=== PATIENT | male | born 1955 | race American Indian/Alaskan Native ===

== ENCOUNTER 2018-06-08 11:59 | Inpatient (IN) | payer MEDICAID, OTHER ==
[~2018-06-08] VITALS: Ht 180.3 cm; Wt 113.1 kg
[2018-06-08 14:24] LABS: INR 0.95 (0.9-1.15); Partial Thromboplastin Time 26.6 sec (23.78-33.04); Prothrombin Time 10.2 sec (9.27-12.13)
[2018-06-08] MEDS ORDERED: cefTRIAXone 1GM/10ml IVPUSH 10 ML IV ONE (18:00)
[2018-06-08] MEDS ORDERED: HYDROcodone-ACET 10/325MG TAB PO ONE (18:00)
[2018-06-08] MEDS ORDERED: CLINDAMYCIN 600MG IV 50 ML IV ONE (18:00)
[2018-06-08] MEDS ORDERED: TEMAZEPAM 15 MG CAP PO PRN (19:00)
[2018-06-08] MEDS ORDERED: ONDANSETRON HCL 4 MG/2 ML VIAL IV PRN (19:00)
[2018-06-08] MEDS ORDERED: DOCUSATE SOD 100 MG CAP PO PRN (19:00)
[2018-06-08] MEDS ORDERED: cloNIDine HCL 0.1 MG TAB PO PRN (19:00)
[2018-06-08] MEDS ORDERED: ACETAMINOPHEN 325 MG TAB PO PRN (19:00)
[2018-06-08 19:14] LABS: Basophils # (auto) 0 uL; Basophils % (auto) 0.3 % (0.0-2.0); Eosinophils # (auto) 0.1 uL; Eosinophils % (auto) 0.6 % (0.0-7.0); Hematocrit 45.1 % (41.0-53.0); Hemoglobin 15.5 g/dL (13.5-17.5); Lymphocytes # (auto) 2.4 uL; Lymphocytes % (auto) 24.5 % (10.0-50.0); Mean Corpuscular Hemoglobin 32.3 pg (28.0-32.0); Mean Corpuscular Hgb Conc. 34.4 g/dL (32.0-36.0); Mean Corpuscular Volume 93.9 fL (80.0-100.0); Monocytes % (auto) 9.9 % (0.0-12.0); Neutrophils # (auto) 6.3 uL; Neutrophils % (auto) 64.7 % (37.0-80.0); Platelet Count (auto) 279 10^3/uL (140-450); White Blood Cell 9.8 10^3/uL (4.4-10.8)
[2018-06-08 19:20] LABS: Albumin 3.8 g/dL (3.4-5.0); BUN/Creatinine Ratio 16.9; Bilirubin, Total 1.3 mg/dL (0.2-1.0); Calcium 8.6 mg/dL (8.5-10.1); Potassium 4.3 mmol/L (3.5-5.1); Total Protein 7.6 g/dL (6.4-8.2)
[2018-06-08 20:15] VITALS: BP 153/82
[2018-06-08 22:00] VITALS: BP 153/82
[2018-06-08] MEDS: FAMOTIDINE 20 MG TAB PO SCH (22:00)
[2018-06-09] MEDS: HYDROcodone-ACET 5/325MG TAB PO PRN ×5 (00:35→19:44)
[2018-06-09] MEDS: CLINDAMYCIN 600MG IV 50 ML IV SCH ×3 (02:00→17:33)
[2018-06-09 05:34] VITALS: BP 131/75
[2018-06-09 06:20] LABS: Basophils # (auto) 0 uL; Basophils % (auto) 0.5 % (0.0-2.0); Eosinophils # (auto) 0.1 uL; Eosinophils % (auto) 1.6 % (0.0-7.0); Hematocrit 42.2 % (41.0-53.0); Hemoglobin 14.5 g/dL (13.5-17.5); Lymphocytes # (auto) 3.3 uL; Lymphocytes % (auto) 35.1 % (10.0-50.0); Mean Corpuscular Hemoglobin 32.1 pg (28.0-32.0); Mean Corpuscular Hgb Conc. 34.3 g/dL (32.0-36.0); Mean Corpuscular Volume 93.6 fL (80.0-100.0); Monocytes # (auto) 1.1 uL; Monocytes % (auto) 11.3 % (0.0-12.0); Neutrophils # (auto) 4.8 uL; Neutrophils % (auto) 51.5 % (37.0-80.0); Platelet Count (auto) 268 10^3/uL (140-450); Red Blood Cells 4.51 10^6/uL (4.5-5.90); Red Cell Distribution Width 13.1 % (11.8-14.3); White Blood Cell 9.3 10^3/uL (4.4-10.8)
[2018-06-09 06:54] LABS: Albumin 3.4 g/dL (3.4-5.0); BUN/Creatinine Ratio 14.3; Bilirubin, Total 1.3 mg/dL (0.2-1.0); Calcium 8.4 mg/dL (8.5-10.1); Potassium 4.2 mmol/L (3.5-5.1); Total Protein 6.9 g/dL (6.4-8.2)
[2018-06-09] MEDS ORDERED: ASPI325T4 PO (07:59)
[2018-06-09] MEDS ORDERED: LISI10TA6 PO (07:59)
[2018-06-09] MEDS: cefTRIAXone 1GM/10ml IVPUSH 10 ML IV SCH (08:48)
[2018-06-09] MEDS: FAMOTIDINE 20 MG TAB PO SCH ×2 (08:48→21:25)
[2018-06-09 09:01] VITALS: BP 156/81
[2018-06-09] MEDS ORDERED: ENOXAPARIN SOD 40 MG/0.4 ML SYRINGE SC SCH (10:00)
[2018-06-09] MEDS ORDERED: LISINOPRIL 10 MG TAB PO ONE (10:45)
[2018-06-09 12:39] VITALS: BP 155/80
[2018-06-09 17:08] VITALS: BP 133/71
[2018-06-09 21:20] VITALS: BP 116/63
[2018-06-10] MEDS: CLINDAMYCIN 600MG IV 50 ML IV SCH ×3 (02:08→18:00)
[2018-06-10 05:21] VITALS: BP 151/85
[2018-06-10] MEDS: HYDROcodone-ACET 5/325MG TAB PO PRN (05:37)
[2018-06-10 05:46] LABS: Urine Bacteria NONE SEEN /hpf (None Seen); Urine Blood Negative /uL (Negative); Urine Mucus FEW (None Seen); Urine Specific Gravity 1.015 (1.001-1.035); Urine WBC 5 /hpf (0 - 3)
[2018-06-10 09:00] VITALS: BP 135/88
[2018-06-10] MEDS: FAMOTIDINE 20 MG TAB PO SCH ×3 (09:22→21:32)
[2018-06-10] MEDS: cefTRIAXone 1GM/10ml IVPUSH 10 ML IV SCH (09:22)
[2018-06-10] MEDS: LISINOPRIL 10 MG TAB PO SCH (09:24)
[2018-06-10 13:00] VITALS: BP 139/73
[2018-06-10 17:00] VITALS: BP 148/60
[2018-06-10 22:00] VITALS: BP 135/70
[2018-06-11] VITALS (7 sets, daily range): BP systolic 120–151; BP diastolic 66–76
[2018-06-11] MEDS: CLINDAMYCIN 600MG IV 50 ML IV SCH ×3 (02:17→17:51)
[2018-06-11] MEDS: cefTRIAXone 1GM/10ml IVPUSH 10 ML IV SCH (09:34)
[2018-06-11] MEDS: FAMOTIDINE 20 MG TAB PO SCH ×3 (09:35→21:25)
[2018-06-11] MEDS: LISINOPRIL 10 MG TAB PO SCH (09:35)
[2018-06-11] MEDS ORDERED: metFORMIN HYDROCHLORIDE 500 MG TAB PO ONE (12:45)
[2018-06-11] MEDS: HYDROcodone-ACET 5/325MG TAB PO PRN (17:51)
[2018-06-12] MEDS: CLINDAMYCIN 600MG IV 50 ML IV SCH ×2 (01:34→10:12)
[2018-06-12 04:53] VITALS: BP 144/76
[2018-06-12 07:57] LABS: BUN/Creatinine Ratio 17.8
[2018-06-12 09:00] VITALS: BP 136/66
[2018-06-12 09:13] LABS: Basophils # (auto) 0 uL; Basophils % (auto) 0.4 % (0.0-2.0); Eosinophils # (auto) 0.2 uL; Hematocrit 45.8 % (41.0-53.0); Hemoglobin 15.5 g/dL (13.5-17.5); Lymphocytes # (auto) 3.1 uL; Lymphocytes % (auto) 32.1 % (10.0-50.0); Mean Corpuscular Hemoglobin 31.7 pg (28.0-32.0); Mean Corpuscular Hgb Conc. 33.8 g/dL (32.0-36.0); Mean Corpuscular Volume 93.7 fL (80.0-100.0); Monocytes # (auto) 0.6 uL; Monocytes % (auto) 6.7 % (0.0-12.0); Neutrophils # (auto) 5.6 uL; Neutrophils % (auto) 58.8 % (37.0-80.0); Nucleated Red Blood Cells % 0.1 %; Platelet Count (auto) 391 10^3/uL (140-450); Red Blood Cells 4.89 10^6/uL (4.5-5.90); White Blood Cell 9.6 10^3/uL (4.4-10.8)
[2018-06-12] MEDS ORDERED: metFORMIN HYDROCHLORIDE 500 MG TAB PO SCH (10:00)
[2018-06-12] MEDS: LISINOPRIL 10 MG TAB PO SCH (10:10)
[2018-06-12] MEDS: cefTRIAXone 1GM/10ml IVPUSH 10 ML IV SCH (10:11)
[2018-06-12] MEDS: HYDROcodone-ACET 5/325MG TAB PO PRN (12:10)
[2018-06-12] MEDS ORDERED: METF-370 PO (12:30)
[2018-06-12] MEDS ORDERED: CLIN1CAP4 PO (12:30)
[2018-06-12] MEDS ORDERED: LEVO500T21 PO (12:30)
[2018-06-12] MEDS ORDERED: SACC250C PO (12:30)
[2018-06-12] MEDS ORDERED: HYDR-4683 PO (12:30)
[2018-06-12 13:00] VITALS: BP 126/80
[2018-06-12 13:03] VITALS: BP 136/66
== END 2018-06-12 15:10 | disposition home or self-care (01) | DRG 383 ==
LOC: ER 12:04 → OVERFLOW 12:05 → CENTRAL 20:15
PROVIDERS: ADMIT Nurse Practitioner; ATTEND Internal Medicine
DX: L03.115 Cellulitis of right lower limb (principal); E11.9 Type 2 diabetes mellitus without complications; I10 Essential (primary) hypertension; Z96.651 Presence of right artificial knee joint; E66.9 Obesity, unspecified; Z82.49 Family history of ischemic heart disease and other diseases of the circulatory system; Z68.34 Body mass index [BMI] 34.0-34.9, adult; Z86.711 Personal history of pulmonary embolism
CPT/HCPCS: 36415; 71045; 80048; 80053; 80061; 81001; 82247; 82962; 83036; 83605; 85025; 85610; 85730; 87040; 93971; 94761; 96365; 96375; J0696; J3490